=== PATIENT | male | born 1975 | race African-American/Black ===

== ENCOUNTER 2016-05-30 15:55 | Emergency (ER) | payer OTHER ==
[~2016-05-30] VITALS: Ht 180.3 cm; Wt 102.1 kg
[2016-05-30] MEDS ORDERED: MUPIROCIN 2 % TOPICAL CREAM 15GM TUBE. TP STA (16:11)
[2016-05-30] MEDS ORDERED: MORPHINE SULFATE 10 MG/ML VIAL. IM ONE (16:15)
[2016-05-30] MEDS ORDERED: OXYC-323 PO (16:42)
[2016-05-30] MEDS ORDERED: BACI3.5O8 TOP (16:42)
[2016-05-30] MEDS ORDERED: DIPHTH,PERTUSS(ACELL),TET TOX 0.5 ML DISP.SYRIN. VAX IM ONE (16:45)
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
[2016-05-30 17:15] VITALS: BP 170/82
[2016-05-30] MEDS ORDERED: OXYCODONE/APAP 7.5/325 TABLET. PO ONE (17:15)
== END 2016-05-30 17:30 | disposition home or self-care (01) ==
LOC: ER 15:55
DX: T23.201A Burn of second degree of right hand, unspecified site, initial encounter (principal); T22.112A Burn of first degree of left forearm, initial encounter; T22.111A Burn of first degree of right forearm, initial encounter; T31.0 Burns involving less than 10% of body surface; F17.210 Nicotine dependence, cigarettes, uncomplicated; X08.8XXA Exposure to other specified smoke, fire and flames, initial encounter; Y93.89 Activity, other specified; Y92.89 Other specified places as the place of occurrence of the external cause; Y99.8 Other external cause status
CPT/HCPCS: 16020; 90471; 90715; 96372; 99284; J2270

== ENCOUNTER 2020-04-08 09:03 | Inpatient (IN) | payer OTHER ==
[~2020-04-08] VITALS: Ht 180.3 cm; Wt 108.8 kg
[~2020-04-08 09:03] MED LIST: BACI3.5O8 TOP; OXYC1TAB15 PO
[2020-04-08 09:25] VITALS: BP 149/96
[2020-04-08 11:00] VITALS: BP 173/92
--- NOTE | 2020-04-08 11:01 | CONS ---
DATE OF CONSULTATION: PULMONARY CONSULTATION ATTENDING PHYSICIAN: Joselyn Trinidad MD. REASON FOR CONSULTATION: Dyspnea. HISTORY OF PRESENT ILLNESS: The patient is a 45-year-old who has no significant tobacco history. He presented to [facility] with complaint of orthopnea and paroxysmal nocturnal dyspnea for the last month and half. The patient denies any cough, fever or chills. Denies any chest pains. He does have occasional lower extremity edema. He said he has no known COVID exposures. At [facility], he had a CTA chest done, which was reviewed by me and it shows evidence of congestive heart failure. There is no evidence of pulmonary embolism. There were faint bilateral interstitial infiltrates and basal pleural effusions. He has been transferred to our facility for further care. There was some mildly enlarged subcarinal lymph node. PAST MEDICAL HISTORY: No significant tobacco history. No known cardiac dysfunction. PAST SURGICAL HISTORY: No recent surgery. ALLERGIES: None reported. MEDICATIONS: Reviewed as listed in the [facility]. He did receive Lasix at [facility]. REVIEW OF SYSTEMS: Twelve-point system obtained. Pertinent positives discussed in my history of present illness, otherwise noncontributory. All systems that were negative were reviewed as well. FAMILY HISTORY: Noncontributory to lungs. SOCIAL HISTORY: Nonsmoker. PHYSICAL EXAMINATION: VITAL SIGNS: Reviewed. He is afebrile, his pulse ox is 96% on room air. NECK: Supple. Visual exam done due to COVID suspicion. No skin rash. He is obese. LABORATORY DATA: From [facility] showed a white cell count 9.6, hemoglobin 13.6 and platelets are 234. BUN is 13, creatinine of 1.1. ProBNP is 4248. IMPRESSION: 1. Dyspnea with orthopnea and paroxysmal nocturnal dyspnea for the last 2 months. The findings are highly suggestive of congestive heart failure. 2. Abnormal CT chest with bilateral interstitial faint infiltrate and small pleural effusion. No evidence of pulmonary embolism. Findings highly suggestive of congestive heart failure. 3. No significant tobacco history. 4. Low clinical suspicion for COVID-19. RECOMMENDATIONS: 1. The patient is currently on room air. We would recommend diuresis and monitoring of renal function. 2. Rule out COVID. Clinical suspicion is low. 3. Need an echocardiogram to rule out systolic or diastolic dysfunction. 4. Needs a Cardiology consult and recommendation. 5. Discussed with RN and Dr. Trinidad. 6. The patient may benefit from sleep study as an outpatient. JACE DE JESUS MD DR: GENEVIEVE/karri JOB#: [id number] / [id number]
[2020-04-08] MEDS ORDERED: cloNIDine HCL 0.1 MG TABLET PO PRN (11:30)
[2020-04-08] MEDS ORDERED: diphenhydrAMINE 50 MG/ML VIAL IVP PRN (11:30)
[2020-04-08] MEDS ORDERED: chlordiazePOXIDE HCL 25 MG CAPSULE PO PRN ×2 (11:30)
[2020-04-08] MEDS ORDERED: HALOPERIDOL LACTATE 5 MG/ML VIAL. IVP PRN (11:30)
[2020-04-08] MEDS: MULTIVITAMIN with MINERAL TABLET. PO SCH (12:08)
[2020-04-08] MEDS: FOLIC ACID 1 MG TABLET. PO SCH (12:08)
[2020-04-08] MEDS: THIAMINE 100 MG TABLET. PO SCH (12:08)
--- NOTE | 2020-04-08 12:40 | HP ---
ADMIT DATE: 04/08/2020 HISTORY OF PRESENT ILLNESS: The patient is a 45-year-old male patient who presented to the Emergency Room of [facility] with a complaint of shortness of breath that has been going on for almost 2 months. He also stated that he has orthopnea and paroxysmal nocturnal dyspnea. His shortness of breath is worse on exertion and on climbing the hill. He said when he goes down to the mailbox he has no problem, but when he comes back he is very short of breath; however, he denied any chest pain, denied any cough, phlegm or hemoptysis. 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 He follows with Dr. Dickey and he was told that he has hypertension, but has never taken any medication for that. PAST MEDICAL HISTORY: Significant for hypertension diagnosed by primary care physician, but he is not taking any medication for that. Other than that his past medical history is really unremarkable. PAST SURGICAL HISTORY: Significant for appendectomy. ALLERGIES: He has no known drug allergies. MEDICATIONS: He takes ibuprofen or Aleve occasionally as needed for aches and pains. FAMILY HISTORY: His father is alive at the age of 72 and has osteoarthritis, but otherwise he is fairly healthy. His mother 20 years ago because of lung cancer, although she has not been a smoker. He has other 5 siblings, all of them are healthy. SOCIAL HISTORY: He is , has 3 children. He does not smoke, but drinks about two, 30, packs of alcohol a week and does not use any drugs or smoke marijuana. 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 REVIEW OF SYSTEMS: The patient denied any blurring of vision, cataract, glaucoma or macular degeneration. Denied any earache, tinnitus or sensorineural deafness. Denied any nosebleeds, stuffy nose or postnasal drip. Denied any sore throat, sore tongue, toothache, hoarseness of voice or difficulty swallowing. Denied any nausea, vomiting, diarrhea or constipation. Denied any hematemesis, melena or hematochezia. Denied any dysuria, frequency or hematuria. Denied any chest pain. Did complain of shortness of breath, worse on exertion, orthopnea, paroxysmal nocturnal dyspnea. Denied any cough, phlegm or hemoptysis. PHYSICAL EXAMINATION: GENERAL: On arrival to the Emergency Room, the patient was slightly tachypneic, but there was no pallor, jaundice, cyanosis or thyromegaly. No jugular venous distention. No lower limb edema. VITAL SIGNS: His heart rate was 122, blood pressure was 147/107, temperature was 98.2, respiratory rate 20 and oxygen saturation was 99% on room air. HEAD, EYES, EARS, NOSE AND THROAT: Showed normocephalic, atraumatic. NECK: Supple. HEART: Normal first and second heart sounds. No gallop or murmur. CHEST: Shows central trachea, equal bilateral chest expansion, air entry, vesicular breath sounds with bilateral basal crepitation posteriorly on both sides. I could not appreciate any rhonchi. ABDOMEN: Distended, soft, nontender. NEUROLOGIC: He was grossly intact. LABORATORY AND DIAGNOSTIC DATA: His lab work on arrival to the Emergency Room showed a white cell count 9600, hemoglobin 13.6, hematocrit 41, MCV 93 and platelet count 234,000 with normal manual differential. His chemistry showed a serum sodium 130, potassium 4.4, chloride 95, bicarbonate 24, anion gap of 11, BUN 13, creatinine 1.1, estimated GFR was 72 mL per minute, his glucose was 107, calcium was 8.7, magnesium was 1.8. Total bilirubin, AST, ALT, alkaline phosphatase were normal. CK was 59. His beta natriuretic peptide was 4248. Total protein was 6.2, albumin was 3.4, serum lipase was 75. First set of cardiac enzymes showed troponin to be 0.018. His prothrombin time was 11, INR 1.1, aPTT was 26 and D-dimer was 1.26. He has had a chest x-ray, which showed cardiomegaly and bilateral airspace disease, suggesting interstitial edema, atypical infection cannot be excluded. Given his shortness of breath and elevated D-dimer, he underwent CT angio of the chest, which showed the patient's heart size is moderately enlarged, no pericardial effusion, scattered coronary calcification. There are mildly enlarged right paratracheal and subcarinal and right hilar lymph nodes measuring 10-12 mm. There are no central lobar or segmental pulmonary emboli. The subsegmental branches are not well evaluated based on technique. Central airways are patent. Mild diffuse bronchial wall thickening. There are prominent interstitial markings bilaterally with patchy ground glass opacities throughout both lungs, small bilateral pleural effusion, no pneumothorax. Limited images of the upper abdomen showed small amount of ascites anterior to the liver. No acute bony abnormality. ASSESSMENT AND PLAN: The patient was basically diagnosed with new onset congestive heart failure, was transferred to [facility] to consult the management professional. 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 He apparently has responded well to Lasix. I will start him on Lovenox for DVT prophylaxis. I will start him also on alcohol withdrawal protocol and he was seen in consultation by the educational resource coordinator and we have consulted also the management professional for evaluation and treatment. GWENDOLYN DAVENPORT MD DR: ZULEMA/karri JOB#: [id number] / [id number]
[2020-04-08] MEDS ORDERED: ENOXAPARIN 40 MG/0.4 ML SYRINGE. SQ SCH (13:00)
[2020-04-08 15:00] VITALS: BP 185/103
[2020-04-08] MEDS: ACETAMINOPHEN 325 MG TABLET. PO PRN (15:05)
[2020-04-08 17:39] VITALS: BP 128/78
[2020-04-08 19:15] VITALS: BP 150/96
[2020-04-08 23:34] VITALS: BP 146/86
[2020-04-09 03:20] VITALS: BP 169/89
[2020-04-09 07:00] VITALS: BP 160/98
[2020-04-09] MEDS: FOLIC ACID 1 MG TABLET. PO SCH (09:18)
[2020-04-09] MEDS: THIAMINE 100 MG TABLET. PO SCH (09:18)
[2020-04-09] MEDS: MULTIVITAMIN with MINERAL TABLET. PO SCH (09:19)
[2020-04-09 09:25] LABS: ALBUMIN 3.6 g/dL (3.4-5.0); ALBUMIN/GLOBULIN RATIO 1.2 (1.0-1.7); CALCIUM 8.7 mg/dL (8.5-10.1); GFR 97.8; POTASSIUM 3.9 mmol/L (3.5-5.1); TOTAL PROTEIN 6.6 g/dL (6.4-8.2)
--- NOTE | 2020-04-09 10:13 | PN ---
DATE: 04/09/2020 SUBJECTIVE: The patient is resting, slightly propped up in bed, in no apparent respiratory distress. He denied any chest pain, continued to have shortness of breath and episodes of orthopnea. He did also have episodes of restlessness and anxiety last night for which he received some Ativan. PHYSICAL EXAMINATION: GENERAL: On examining him this morning, he looked well and was clearly in no apparent respiratory distress. No pallor, jaundice, cyanosis, or thyromegaly. No jugular venous distension. No lower limb edema. VITAL SIGNS: His heart rate was 118, blood pressure was 160/98, temperature 97.5, respiratory rate 20, and oxygen saturation was 94%. HEAD, EYES, EARS, NOSE AND THROAT: Showed normocephalic, atraumatic. NECK: Supple. HEART: Showed normal first and second heart sounds. No gallop, rub or murmur. CHEST: Clear to auscultation. No crepitation or rhonchi. ABDOMEN: Distended, soft, nontender. NEUROLOGIC: He was grossly intact. ASSESSMENT: This is a 45-year-old male patient who presented with progressive shortness of breath that has worsened over the last 2 months associated orthopnea, paroxysmal nocturnal dyspnea. Denied any chest pain. He has had a chest x-ray, which showed that he has cardiomegaly and CT scan ruled out pulmonary emboli. The patient apparently responded well to the IV Lasix. PLAN: We will continue with IV Lovenox. I started him on alcohol withdrawal protocol. Await evaluation by the client experience administrator, he is PUI; however, his COVID test by PCR is still pending at the time of this dictation. GWENDOLYN DAVENPORT MD DR: ZULEMA/karri JOB#: [id number] / [id number]
--- NOTE | 2020-04-09 10:19 | PDOC ---
PULMONARY PROGRESS NOTES DATE: 04/09/20 TIME: 10:18 Subjective feels better , no soa Vitals Vital Signs Date Time Temp Pulse Resp B/P (MAP) Pulse Ox O2 Delivery O2 Flow Rate FiO2 04/09/20 07:00 97.5 118 20 160/98 (118) 94 Room Air 97.5 04/09/20 03:20 2.0 General: Alert, No acute distress Lungs: Clear Cardiovascular: S1 Abdomen: Soft, Other (obese) Extremities: Other (trace edema) Skin: Warm Labs Laboratory Tests Test 04/08/20 11:43 04/09/20 08:22 Prothrombin Time 14.0 SEC (11.7-14.0) Prothromb Time International Ratio 1.1 (0.8-1.1) Magnesium Level 1.9 mg/dL (1.8-2.4) Troponin I Quantitative < 0.017 ng/mL (0.000-0.055) Thyroid Stimulating Hormone (TSH) 4.656 uIU/mL (0.358-3.74) Sodium Level 134 mmol/L (136-145) Potassium Level 3.9 mmol/L (3.5-5.1) Chloride Level 97 mmol/L (98-107) Carbon Dioxide Level 26 mmol/L (21-32) Anion Gap 11 (6-14) Blood Urea Nitrogen 10 mg/dL (8-26) Creatinine 1.0 mg/dL (0.7-1.3) Estimated GFR (Cockcroft-Gault) 97.8 BUN/Creatinine Ratio 10 (6-20) Glucose Level 104 mg/dL (70-99) Calcium Level 8.7 mg/dL (8.5-10.1) Total Bilirubin 1.0 mg/dL (0.2-1.0) Aspartate Amino Transf (AST/SGOT) 25 U/L (15-37) Alanine Aminotransferase (ALT/SGPT) 39 U/L (16-63) Alkaline Phosphatase 62 U/L (46-116) Total Protein 6.6 g/dL (6.4-8.2) Albumin 3.6 g/dL (3.4-5.0) Albumin/Globulin Ratio 1.2 (1.0-1.7) Laboratory Tests Test 04/08/20 11:43 04/09/20 08:22 Prothrombin Time 14.0 SEC (11.7-14.0) Prothromb Time International Ratio 1.1 (0.8-1.1) Magnesium Level 1.9 mg/dL (1.8-2.4) Troponin I Quantitative < 0.017 ng/mL (0.000-0.055) Thyroid Stimulating Hormone (TSH) 4.656 uIU/mL (0.358-3.74) Sodium Level 134 mmol/L (136-145) Potassium Level 3.9 mmol/L (3.5-5.1) Chloride Level 97 mmol/L (98-107) Carbon Dioxide Level 26 mmol/L (21-32) Anion Gap 11 (6-14) Blood Urea Nitrogen 10 mg/dL (8-26) Creatinine 1.0 mg/dL (0.7-1.3) Estimated GFR (Cockcroft-Gault) 97.8 BUN/Creatinine Ratio 10 (6-20) Glucose Level 104 mg/dL (70-99) Calcium Level 8.7 mg/dL (8.5-10.1) Total Bilirubin 1.0 mg/dL (0.2-1.0) Aspartate Amino Transf (AST/SGOT) 25 U/L (15-37) Alanine Aminotransferase (ALT/SGPT) 39 U/L (16-63) Alkaline Phosphatase 62 U/L (46-116) Total Protein 6.6 g/dL (6.4-8.2) Albumin 3.6 g/dL (3.4-5.0) Albumin/Globulin Ratio 1.2 (1.0-1.7) Medications Active Scripts Medications Dose Route/Sig Max Daily Dose Days Date Category Impression . 1. Dyspnea with orthopnea and paroxysmal nocturnal dyspnea for the last 2 months. The findings are highly suggestive of congestive heart failure. 2. Abnormal CT chest with bilateral interstitial faint infiltrate and small pleural effusion. No evidence of pulmonary embolism. Findings highly suggestive of congestive heart failure. 3. No significant tobacco history. 4. Low clinical suspicion for COVID-19. Plan . 1. The patient is currently on room air. We would recommend prn diuresis and monitoring of renal function. 2. Rule out COVID. Clinical suspicion is low. 3. Need an echocardiogram to rule out systolic or diastolic dysfunction. 4. Needs a Cardiology consult and recommendation. 5. Discussed with RN and Dr. Trinidad. 6. The patient may benefit from sleep study as an outpatient. JACE DE JESUS MD Apr 09, 2020 10:19
[2020-04-09 10:42] VITALS: BP 158/94
[2020-04-09] MEDS: ALBUTEROL SULFATE 8GM INHALER. INH SCH ×3 (12:00→20:00)
--- NOTE | 2020-04-09 13:11 | PDOC2 ---
CONSULT Date of Consult Date of Consult DATE: 04/09/20 TIME: 13:06 Reason for Consult Reason for Consult: Congestive heart failure Referring Physician Referring Physician: Dr. Trinidad Identification/Chief Complaint Chief Complaint Shortness of breath Source Source: Chart review, Patient History of Present Illness Reason for Visit: 45-year-old male without any previous cardiac history initially presented to [facility] ED with progressive shortness of breath going on for approximately 2 months. He also complained of orthopnea and PND but denied any chest pain, palpitations or syncope. He was diagnosed with congestive heart failure and transferred to [facility] for further management. He is also currently being tested for Covid. Patient has a history of chronic alcohol abuse but denied any illicit drug use. Past Medical History Cardiovascular: HTN Past Surgical History Past Surgical History: Appendectomy Family History Family History Lung cancer and hypertension Social History Social History Patient drinks about 60 beers a week and denied any smoking or drug abuse. Current Medications Current Medications Current Medications Folic Acid (Folic Acid) 1 mg DAILY PO Last administered on 04/09/20at 09:18; Start 04/08/20 at 12:00 Thiamine Mononitrate (Vitamin B-1) 100 mg DAILY PO Last administered on 04/09/20at 09:18; Start 04/08/20 at 12:00 Multivitamins (Thera M Plus) 1 tab DAILY PO Last administered on 04/09/20at 09:19; Start 04/08/20 at 12:00 Chlordiazepoxide (Librium) 50 mg PRN Q1HR PRN PO For CIWA 8-14; Start 04/08/20 at 11:30 Chlordiazepoxide (Librium) 100 mg PRN Q1HR PRN PO For CIWA 15 or greater; Start 04/08/20 at 11:30 Lorazepam (Ativan) 4 mg PRN Q1HR PRN PO For CIWA 8-14; Start 04/08/20 at 11:30 Lorazepam (Ativan Inj) 2 mg PRN Q1HR PRN IV For CIWA 8-14 Last administered on 04/09/20at 00:45; Start 04/08/20 at 11:30 Lorazepam (Ativan Inj) 4 mg PRN Q1HR PRN IV For CIWA 15 or greater; Start 04/08/20 at 11:30 Haloperidol Lactate (Haldol Inj) 5 mg PRN Q4HRS PRN IVP Hallucinatns,Confusn,Delirium; Start 04/08/20 at 11:30 Diphenhydramine HCl (Benadryl) 25 mg PRN Q15MIN PRN IVP EPS symptoms 2'Haldol admin Last administered on 04/08/20at 23:31; Start 04/08/20 at 11:30 Clonidine HCl (Catapres) 0.1 mg PRN Q1HR PRN PO SBP > 180 or DBP > 100, MRX3 Last administered on 04/08/20at 16:07; Start 04/08/20 at 11:30 Lorazepam (Ativan Inj) 2 mg PRN Q15MIN PRN IV SEE COMMENTS; Start 04/08/20 at 11:30; Status UNV Enoxaparin Sodium (Lovenox 40mg Syringe) 40 mg Q24H SQ ; Start 04/09/20 at 16:00 Enoxaparin Sodium (Lovenox 40mg Syringe) 40 mg Q24H SQ ; Start 04/08/20 at 13:00; Status UNV Acetaminophen (Tylenol) 650 mg PRN Q4HRS PRN PO MILD PAIN / TEMP > 100.3'F Last administered on 04/08/20at 15:05; Start 04/08/20 at 15:00 Albuterol Sulfate (Ventolin Hfa) 1 puff RTQID INH ; Start 04/09/20 at 12:00 Active Scripts Active Allergies Allergies: Coded Allergies: No Known Drug Allergies (Unverified , 05/30/16) ROS PSYCHOLOGICAL ROS: No: Hallucinations Eyes: No Loss of vision HEENT: No: Epistaxis Respiratory: YES: Orthopnea, Shortness of breath; No: Hemoptysis Cardiovascular: No Palpitations Gastrointestinal: No Vomiting, No Diarrhea Genitourinary: No Hematuria Neurological: No Seizures Skin: No Rash Physical Exam General: Alert, Oriented X3 HEENT: Atraumatic Lungs: Other (Scattered crepitations bilaterally) Heart: No murmurs, Other (Tachycardic) Extremities: No edema Neuro: Normal speech Psych/Mental Status: Mood NL Vitals VITALS Vital Signs Date Time Temp Pulse Resp B/P (MAP) Pulse Ox O2 Delivery O2 Flow Rate FiO2 04/09/20 10:42 98.1 119 20 158/94 (115) 95 Room Air 98.1 04/09/20 03:20 2.0 Labs Labs Laboratory Tests Test 04/08/20 11:43 04/09/20 08:22 Prothrombin Time 14.0 SEC (11.7-14.0) Prothromb Time International Ratio 1.1 (0.8-1.1) Magnesium Level 1.9 mg/dL (1.8-2.4) Troponin I Quantitative < 0.017 ng/mL (0.000-0.055) Thyroid Stimulating Hormone (TSH) 4.656 uIU/mL (0.358-3.74) Sodium Level 134 mmol/L (136-145) Potassium Level 3.9 mmol/L (3.5-5.1) Chloride Level 97 mmol/L (98-107) Carbon Dioxide Level 26 mmol/L (21-32) Anion Gap 11 (6-14) Blood Urea Nitrogen 10 mg/dL (8-26) Creatinine 1.0 mg/dL (0.7-1.3) Estimated GFR (Cockcroft-Gault) 97.8 BUN/Creatinine Ratio 10 (6-20) Glucose Level 104 mg/dL (70-99) Calcium Level 8.7 mg/dL (8.5-10.1) Total Bilirubin 1.0 mg/dL (0.2-1.0) Aspartate Amino Transf (AST/SGOT) 25 U/L (15-37) Alanine Aminotransferase (ALT/SGPT) 39 U/L (16-63) Alkaline Phosphatase 62 U/L (46-116) Total Protein 6.6 g/dL (6.4-8.2) Albumin 3.6 g/dL (3.4-5.0) Albumin/Globulin Ratio 1.2 (1.0-1.7) Laboratory Tests Test 04/09/20 08:22 Sodium Level 134 mmol/L (136-145) Potassium Level 3.9 mmol/L (3.5-5.1) Chloride Level 97 mmol/L (98-107) Carbon Dioxide Level 26 mmol/L (21-32) Anion Gap 11 (6-14) Blood Urea Nitrogen 10 mg/dL (8-26) Creatinine 1.0 mg/dL (0.7-1.3) Estimated GFR (Cockcroft-Gault) 97.8 BUN/Creatinine Ratio 10 (6-20) Glucose Level 104 mg/dL (70-99) Calcium Level 8.7 mg/dL (8.5-10.1) Total Bilirubin 1.0 mg/dL (0.2-1.0) Aspartate Amino Transf (AST/SGOT) 25 U/L (15-37) Alanine Aminotransferase (ALT/SGPT) 39 U/L (16-63) Alkaline Phosphatase 62 U/L (46-116) Total Protein 6.6 g/dL (6.4-8.2) Albumin 3.6 g/dL (3.4-5.0) Albumin/Globulin Ratio 1.2 (1.0-1.7) Assessment/Plan Assessment/Plan 1. Congestive heart failure, most of the acute on chronic diastolic. Symptoms improved after he received Lasix. He seems to be much better compensated clinically today. We will give another dose of IV Lasix today and start p.o. tomorrow. He is currently being tested for Covid. Check 2D echocardiogram if Covid negative. Consider outpatient ischemic evaluation. 2. Accelerated hypertension: Start metoprolol for better control. 3. Chronic alcohol use: Advised on abstinence. Monitor for withdrawal. Thank you for your consultation. JOSE ELIAS ESPINOZA MD Apr 09, 2020 13:11
[2020-04-09] MEDS ORDERED: FUROSEMIDE 40 MG/4 ML VIAL. IVP ONE (13:15)
[2020-04-09 14:57] VITALS: BP 153/89
[2020-04-09] MEDS: ENOXAPARIN 40 MG/0.4 ML SYRINGE. SQ SCH (18:27)
[2020-04-09 19:53] VITALS: BP 173/93
[2020-04-09 22:42] VITALS: BP 182/94
[2020-04-10] MEDS: ACETAMINOPHEN 325 MG TABLET. PO PRN (01:17)
[2020-04-10 02:58] VITALS: BP 169/90
[2020-04-10 07:00] VITALS: BP 148/95
[2020-04-10] MEDS: ALBUTEROL SULFATE 8GM INHALER. INH SCH ×4 (08:00→20:00)
[2020-04-10] MEDS: METOPROLOL TART IMMED RELEASE 25 MG TABLET. PO SCH ×2 (09:02→20:27)
[2020-04-10] MEDS: THIAMINE 100 MG TABLET. PO SCH (09:02)
[2020-04-10] MEDS: FOLIC ACID 1 MG TABLET. PO SCH (09:02)
[2020-04-10] MEDS: MULTIVITAMIN with MINERAL TABLET. PO SCH (09:02)
--- NOTE | 2020-04-10 10:41 | PDOC ---
PULMONARY PROGRESS NOTES DATE: 04/10/20 TIME: 10:40 Subjective feels better , no soa Vitals Vital Signs Date Time Temp Pulse Resp B/P (MAP) Pulse Ox O2 Delivery O2 Flow Rate FiO2 04/10/20 09:02 114 148/95 04/10/20 08:00 Room Air 04/10/20 07:00 97.6 19 98 97.6 04/09/20 08:00 2.0 General: Alert, No acute distress Lungs: Clear Cardiovascular: S1 Abdomen: Soft, Other (obese) Extremities: Other (trace edema) Skin: Warm Labs Laboratory Tests Test 04/08/20 11:43 04/09/20 08:22 Prothrombin Time 14.0 SEC (11.7-14.0) Prothromb Time International Ratio 1.1 (0.8-1.1) Magnesium Level 1.9 mg/dL (1.8-2.4) Troponin I Quantitative < 0.017 ng/mL (0.000-0.055) Thyroid Stimulating Hormone (TSH) 4.656 uIU/mL (0.358-3.74) Sodium Level 134 mmol/L (136-145) Potassium Level 3.9 mmol/L (3.5-5.1) Chloride Level 97 mmol/L (98-107) Carbon Dioxide Level 26 mmol/L (21-32) Anion Gap 11 (6-14) Blood Urea Nitrogen 10 mg/dL (8-26) Creatinine 1.0 mg/dL (0.7-1.3) Estimated GFR (Cockcroft-Gault) 97.8 BUN/Creatinine Ratio 10 (6-20) Glucose Level 104 mg/dL (70-99) Calcium Level 8.7 mg/dL (8.5-10.1) Total Bilirubin 1.0 mg/dL (0.2-1.0) Aspartate Amino Transf (AST/SGOT) 25 U/L (15-37) Alanine Aminotransferase (ALT/SGPT) 39 U/L (16-63) Alkaline Phosphatase 62 U/L (46-116) Total Protein 6.6 g/dL (6.4-8.2) Albumin 3.6 g/dL (3.4-5.0) Albumin/Globulin Ratio 1.2 (1.0-1.7) Medications Active Scripts Medications Dose Route/Sig Max Daily Dose Days Date Category Impression . 1. Dyspnea with orthopnea and paroxysmal nocturnal dyspnea for the last 2 months. The findings are highly suggestive of congestive heart failure. 2. Abnormal CT chest with bilateral interstitial faint infiltrate and small pleural effusion. No evidence of pulmonary embolism. Findings highly suggestive of congestive heart failure. 3. No significant tobacco history. 4. Low clinical suspicion for COVID-19. Plan . 1. The patient is currently on room air. We would recommend prn diuresis and monitoring of renal function. 2. COVID.NEG 3. Need an echocardiogram to rule out systolic or diastolic dysfunction. 4. Cardiology consult and recommendation. 5. Discussed with RN 6. The patient may benefit from sleep study as an outpatient. [place] PULMONARY BOSS FOR IN JACE DE JESUS MD Apr 10, 2020 10:41
[2020-04-10 11:00] VITALS: BP 131/91
--- NOTE | 2020-04-10 11:23 | PDOC ---
WENDIE REZA APRN 04/10/20 1123: CARDIO Progress Notes Date and Time Date of Service 04/10/20 Time of Evaluation 1030 Subjective Subjective: No Chest Pain, No Palpitations, No Dizziness, Other (c/o dyspnea following echo this am) Vitals Vitals Vital Signs Date Time Temp Pulse Resp B/P (MAP) Pulse Ox O2 Delivery O2 Flow Rate FiO2 04/10/20 09:02 114 148/95 04/10/20 08:00 Room Air 04/10/20 07:00 97.6 19 98 97.6 04/09/20 08:00 2.0 Weight Weight [ ] Input and Output Intake and Output Intake and Output 04/10/20 06:59 Intake Total 1940 ml Output Total 900 ml Balance 1040 ml Intake Oral 1940 ml Output Urine Total 900 ml # Voids 2 Physical Exam HEENT: Neck Supple W Full Motion Chest: Symmetric LUNGS: Clear to Auscultation Heart: RRR Abdomen: Soft N/T Extremities: Other (trace bilateral LE edema ) Neurology: alert, oriented, follow commands Assessment Assessment 1. Acute on chronic systolic CHF; improved with IV Lasix. COVID negatvie. 2. Cardiomyopathy; Echo shows LVEF 20% 3. Accelerated hypertension; remains elevated. Metoprolol added 4. Chronic alcohol use: Reinforced abstinence. Recommendations ASA Lipids Convert metoprolol to long-acting given CMP Add lisinopril Will given additional dose of IV Lasix this morning Discussed need for further ischemic evaluation given new finding of CMP. Patient agreeable, but apprehensive. R/b/a discussed thoroughly with both and . They would like to discussed further to make decision. Justicifation of Admission Dx: Justifications for Admission: Justification of Admission Dx: Yes Comments: acute on chronic systolic CHF Cardiomyopathy JOSE ELIAS ESPINOZA MD 04/10/20 1627: CARDIO Progress Notes Assessment Assessment Patient seen and examined. Agree with PROPERTY MANAGEMENT SUPERVISOR's assessment and plan. Acute on chronic systolic heart failure better compensated. 2D echo showed LVEF 20%. This could be secondary to his heavy alcohol use but ischemic etiology needs to be ruled out. Plan for cardiac catheterization and possible angioplasty. Risks and benefits were explained. Agree with starting beta blockers for better blood pressure control. We will consider changing lisinopril to Entresto as an outpatient. Start spironolactone to optimize therapy. WENDIE REZA APRN Apr 10, 2020 11:23 JOSE ELIAS ESPINOZA MD Apr 10, 2020 16:27
--- NOTE | 2020-04-10 11:24 | PN ---
DATE: 04/10/2020 SUBJECTIVE: The patient is sitting on the edge of the bed comfortably, in no apparent distress. He stated that he has not slept all night last night. Denied any chest pain, shortness of breath, orthopnea or paroxysmal nocturnal dyspnea. His coronavirus PCR was not detectable. He continued to have tachycardia and hypertension, likely due to alcohol withdrawal. PHYSICAL EXAMINATION: GENERAL: When I examined him, he looked well and was clearly in no apparent respiratory distress. No pallor, jaundice, cyanosis or thyromegaly. No jugular venous distention or limb edema. VITAL SIGNS: His heart rate was 109, blood pressure was 169/90, temperature was 97.2, respiratory rate was 20 and oxygen saturation was 100% on room air. HEAD, EYES, EARS, NOSE, THROAT: Showed normocephalic, atraumatic. NECK: Supple. HEART: Normal first and second heart sounds. No gallop or murmur. CHEST: Clear to auscultation. No crepitation or rhonchi. ABDOMEN: Distended, soft, nontender. NEUROLOGIC: He was awake, alert, responding appropriately. All cranial nerves are intact. He moves extremities without difficulty, ambulates without assistance or assistive devices. His intake and output are incompletely recorded. ASSESSMENT: Progressive shortness of breath with orthopnea, paroxysmal nocturnal dyspnea, likely due to acute diastolic congestive heart failure. Chest x-ray showed cardiomegaly. CT scan showed no evidence of pulmonary emboli. The patient did respond very well to IV Lasix. PLAN: My plan is to obviously continue with Lasix. I did start him on metoprolol 25 mg twice a day. Continue with IV Lovenox. He was seen by the rn discharge and the plan for him is to have an echocardiogram to evaluate left ventricular systolic function as he is COVID-19 negative. GWENDOLYN DAVENPORT MD DR: ZULEMA/karri JOB#: [id number] / [id number]
[2020-04-10] MEDS ORDERED: FUROSEMIDE 40 MG/4 ML VIAL. IVP ONE (11:30)
[2020-04-10] MEDS ORDERED: POTASSIUM CHLORIDE 20 MEQ TABLET.ER. PO ONE (11:30)
[2020-04-10 13:38] LABS: CHOLESTEROL/HDL RATIO 4.5
[2020-04-10 15:00] VITALS: BP 138/88
--- NOTE | 2020-04-10 15:16 | CARD ---
MR#: [id number] Date of Study: 04/10/2020 Ordering Physician: JOSE ELIAS ESPINOZA, Referring Physician: JOSE ELIAS ESPINOZA Tech: Kadi Abad [facility] APPROVED REPORT EXAM: Two-dimensional and M-mode echocardiogram with Doppler and color Doppler. Other Information Quality : GoodHR: 113bpm Rhythm : NSR INDICATION Congestive Heart Failure 2D DIMENSIONS RVDd6.2 (2.9-3.5cm)Left Atrium(2D)5.6 (1.6-4.0cm) IVSd1.0 (0.7-1.1cm)Aortic Root(2D)3.3 (2.0-3.7cm) LVDd7.2 (3.9-5.9cm)LVOT Diameter2.3 (1.8-2.4cm) PWd1.0 (0.7-1.1cm)LVDs5.8 (2.5-4.0cm) FS (%) 19.7 %SV108.0 ml LVEF(%)39.3 (>50%) Aortic Valve AoV Peak Esvin.82.8cm/sAoV VTI9.9cm AO Peak GR.2.7mmHgLVOT Peak Esvin.54.5cm/s AO Mean GR.2mmHgAVA (VMAX)2.64cm2 Mitral Valve MV E Evnmxsvh366.5cm/sMV DECEL GFOL55sb MV A Dbpbenft10.9cm/sE/A Ratio1.5 Tricuspid Valve TR P. Gniasana093jn/sTR Peak Gr.35mmHg LEFT VENTRICLE The Left Ventricle is moderately dilated. There is normal left ventricular wall thickness. The left v entricular systolic function is severely impaired. The ejection fraction is 20%. Severe global hypok inesis. Transmitral Doppler flow pattern is Grade II-pseudonormal filling dynamics. RIGHT VENTRICLE The right ventricle appears dilated. There is normal right ventricular wall thickness. Systolic funct ion is mildly to moderately reduced. ATRIA The left atrium is moderately dilated. The right atrium is moderatelyl dilated. The interatrial septu m is intact with no evidence for an atrial septal defect or patent foramen ovale as noted on 2-D or D oppler imaging. AORTIC VALVE The aortic valve is normal in structure and function. Doppler and Color Flow revealed no significant aortic regurgitation. There is no significant aortic valvular stenosis. MITRAL VALVE The mitral valve is normal in structure and function. There is no evidence of mitral valve prolapse. There is no mitral valve stenosis. Doppler and Color-flow revealed moderate mitral regurgitation. TRICUSPID VALVE The tricuspid valve is normal in structure and function. Doppler and Color Flow revealed mild to mode rate tricuspid regurgitation. Estimated PAP 50 mmHg. PULMONIC VALVE The pulmonary valve is normal in structure and function. Doppler and Color Flow revealed trace pulmon ic valvular regurgitation. GREAT VESSELS The aortic root is normal in size. The ascending aorta is normal in size. The pulmonary artery is nor mal. The IVC is dilated and collapses <50% with inspiration. PERICARDIAL EFFUSION There is no evidence of significant pericardial effusion. Critical Notification Critical Value: No <Conclusion> The left ventricular systolic function is severely impaired. The ejection fraction is 20%. Moderate mitral regurgitation. Mild to moderate tricuspid regurgitation. Estimated PAP 50 mmHg. There is no evidence of significant pericardial effusion. Signed by : Jose Elias Espinoza, Electronically Approved : 04/10/2020 15:16:14
[2020-04-10] MEDS: ENOXAPARIN 40 MG/0.4 ML SYRINGE. SQ SCH (16:00)
[2020-04-10 19:30] VITALS: BP 149/93
[2020-04-10 23:30] VITALS: BP 138/86
--- NOTE | 2020-04-11 00:32 | NUR ---
Patient insisting on keeping water at bedside. explained to patient that he can not have anything to eat or drink after midnight d/t procedure in the AM, and aspiration precautions. patient states "i better not choke on my own vomit, i will have a room full of doctors around me", patient then stated that he will not drink any of it but refuses to allow anyone to remove the water from bedside. Will continue to monitor.
[2020-04-11 03:30] VITALS: BP 133/98
[2020-04-11 07:00] VITALS: BP 137/94
--- NOTE | 2020-04-11 07:28 | PN ---
DATE: 04/11/2020 SUBJECTIVE: The patient is sitting at the edge of the bed comfortably in no apparent respiratory distress. Awake, alert. On questioning him, he denied any complaint, apart from being anxious and apprehensive about the procedure. He has had an echocardiogram done yesterday, which showed that he has severe left ventricular systolic dysfunction with an ejection fraction of only 20% with moderate mitral regurgitation, [id number] tricuspid regurgitation and an estimated pulmonary artery pressure of 50 mmHg. There is no evidence of significant pericardial effusion. Given this finding, apparently, a decision was made to proceed with cardiac catheterization to rule out ischemia as a cause of his cardiomyopathy, although alcoholic cardiomyopathy can be the cause. PHYSICAL EXAMINATION: GENERAL: When I examined him this morning, he looked well and was clearly in no apparent respiratory distress. No pallor, jaundice, cyanosis or thyromegaly. No jugular venous distention. No limb edema. VITAL SIGNS: His heart rate was 109, blood pressure was 133/98, temperature was 97.6, respiratory rate 20, and oxygen saturation was 98% on room air. HEAD, EYES, EARS, NOSE AND THROAT: Showed normocephalic, atraumatic. NECK: Supple. HEART: Normal first and second heart sounds. No gallop, rub or murmur. CHEST: Clear to auscultation. No crepitation or rhonchi. ABDOMEN: Soft, nontender. NEUROLOGIC: He was awake, alert, responding appropriately. All cranial nerves are intact. He moves extremities without difficulty. His intake was 1940, output was 900. LABORATORY DATA: His most recent lab work showed a serum sodium 134, potassium 3.9, chloride 97, bicarbonate 26, anion gap of 11, BUN 10, creatinine 1, estimated GFR was 97.8 mL per minute, his glucose 104, calcium was 8.7, magnesium was 1.9. Total bilirubin, AST, ALT, alkaline phosphatase were normal. Total protein was 6.6. albumin was 3.6. His serum triglycerides were 120, total cholesterol 140, LDL was 85, VLDL was 24, HDL was 31 and ratio of 4.5. TSH was 4.656. His prothrombin time and INR are normal. ASSESSMENT: 1. In summary, acute on chronic systolic congestive heart failure. 2. Cardiomyopathy, ischemic versus alcoholic. 3. Accelerated hypertension. 4. Chronic alcoholism. PLAN: Obviously to proceed with cardiac catheterization. Continue with aspirin, metoprolol as well as lisinopril and atorvastatin. Continue with alcohol withdrawal protocol. GWENDOLYN DAVENPORT MD DR: ZULEMA/karri JOB#: [id number] / [id number]
[2020-04-11] MEDS: ALBUTEROL SULFATE 8GM INHALER. INH SCH ×2 (08:00→12:00)
[2020-04-11] MEDS ORDERED: IODIXANOL 320 MG/ML 100 ML VIAL. ONE (08:00)
[2020-04-11] MEDS ORDERED: ASPIRIN ENTERIC COATED 81 MG TABLET.DR. PO SCH (08:00)
[2020-04-11] MEDS ORDERED: LIDOCAINE 1% Multi-Dose 20 ML VIAL. ONE (08:00)
[2020-04-11] MEDS ORDERED: fentaNYL PF VIAL 100 MCG/2 ML VIAL ONE (08:33)
[2020-04-11] MEDS ORDERED: HEPARIN for IV BOLUS 10,000 UNIT/10 ML VIAL. ONE (08:34)
[2020-04-11] MEDS ORDERED: NITROGLYCERIN 200 MCG/2 ML SYRINGE FOR CATH/VASC LAB. ONE (08:34)
[2020-04-11] MEDS ORDERED: VERAPAMIL 5 MG/2 ML VIAL. ONE (08:34)
[2020-04-11] MEDS ORDERED: MIDAZOLAM HCL/PF 2 MG/2 ML VIAL. ONE (08:34)
[2020-04-11] MEDS ORDERED: LISINOPRIL 10 MG TABLET PO SCH (09:00)
[2020-04-11] MEDS ORDERED: HEPARIN for IV BOLUS 10,000 UNIT/10 ML VIAL. IART ONE (09:00)
[2020-04-11] MEDS ORDERED: fentaNYL PF VIAL 100 MCG/2 ML VIAL IV ONE (09:00)
[2020-04-11] MEDS ORDERED: IODIXANOL 320 MG/ML 100 ML VIAL. IART ONE (09:00)
[2020-04-11] MEDS ORDERED: METOPROLOL SUCC 24HR ER 50 MG TAB.ER.24H. PO SCH (09:00)
[2020-04-11] MEDS ORDERED: VERAPAMIL 5 MG/2 ML VIAL. IART ONE (09:00)
[2020-04-11] MEDS ORDERED: MIDAZOLAM HCL/PF 2 MG/2 ML VIAL. IV ONE (09:00)
[2020-04-11] MEDS ORDERED: LIDOCAINE 1% Multi-Dose 20 ML VIAL. INJ ONE (09:00)
[2020-04-11] MEDS ORDERED: NITROGLYCERIN 200 MCG/2 ML SYRINGE FOR CATH/VASC LAB. IART ONE (09:00)
[2020-04-11 09:01] VITALS: BP 122/82
--- NOTE | 2020-04-11 09:11 | PDOC ---
MODERATE SEDATION ASSESSMENT RISKS/ALTERNATIVES Risks/Alternatives Risks and alternatives of this type of sedation and procedure discussed with: RISK/ALTERNATIVES: Patient H & P ON CHART H & P H & P on chart and reviewed for co-morbid conditions and appropriate labs. H&P ON CHART: Yes STATUS PREG STATUS ASSESSED: N/A MEDS/ALLERGIES REVIEWED Meds/Allergies Reviewed Medications and Allergies including time and route of recently administered narcotics and sedatives. MEDS/ALLERGIES REVIEWED: Yes ASA RATING ASA RATING: III AIRWAY ASSESSMENT Airway Assessment Airway patency, oral function limitations, presence of caps, crowns, dentures, partials, and ability to extend neck assessed. AIRWAY ASSESSMENT: Yes MALLAMPATI SCORE MALLAMPATI SCORE: II PRE-SEDATION ASSESSMENT PRE-SEDATION ASSESSMENT: Yes JOSE ELIAS ESPINOZA MD Apr 11, 2020 09:11
[2020-04-11] MEDS: MULTIVITAMIN with MINERAL TABLET. PO SCH (09:25)
[2020-04-11] MEDS: FOLIC ACID 1 MG TABLET. PO SCH (09:26)
[2020-04-11] MEDS: THIAMINE 100 MG TABLET. PO SCH (09:26)
[2020-04-11] MEDS ORDERED: POTASSIUM CHLORIDE 10 MEQ TABLET.ER. PO SCH (09:30)
[2020-04-11] MEDS ORDERED: FUROSEMIDE 40 MG TABLET. PO SCH (09:30)
[2020-04-11] MEDS ORDERED: SPIRONOLACTONE 25 MG TABLET PO SCH (09:30)
--- NOTE | 2020-04-11 09:35 | CARD ---
MR#: [id number] Date of Study: 04/11/2020 Ordering Physician: WENDIE REZA, Referring Physician: WENDIE REZA Tech: RT ROSA ELENA APPROVED REPORT Technologist: RT ROSA ELENA Nurse: Venus Lyons R.N. Procedure(s) performed: Left heart catheterization and selective coronary angiography via right trans radial approach MODERATE SEDATION TIME: 23 MINUTES FLUORO TIME: 1.8 MIN DOSE: 60.3 GYCM2 CONTRAST: 86CC VISI NYHA: CLASS 4 BLOOD LOSS: 5 ML INDICATION The indication(s) include : Acute on chronic systolic heart failure, cardiomyopathy with EF 20%. [facility] Clinical Frailty Scale CS Clinical Frailty Scale: Managing Well Heart Failure Heart Failure: Yes If Yes, Newly Diagnosed: Yes If Yes, HF Type: Systolic PROCEDURE NARRATIVE After explaining the risks, benefits and alternative options, informed consent was obtained from barbara ent. Patient was brought to the cardiac Clerk Of Scales and right wrist was prepped and draped in the usual fashion after confirming a positive modified Nabil's test. Arterial access was obtained in the righ t radial artery and a 6 Taiwanese sheath was inserted. 6 Taiwanese Car catheter was used to perform windy ective angiography of the left and right coronary arteries. LVEDP and transaortic gradients were dameon sured. Left ventriculography was not performed since recent 2D echo showed EF 20%. Patient tolerate d the procedure well. Hemostasis was achieved using TR band. There were no immediate complications. The following findings were noted. FINDINGS 1. Hemodynamics: Left ventricular end-diastolic pressure of 26 mmHg. No pullback gradient across th e aortic valve. 2. Coronary angiography: a. The left main coronary artery arose from the left sinus of Valsalva, gave rise to the left anteri or descending and left circumflex arteries and did not show any significant stenosis. b. The left anterior descending artery did not show any significant stenosis. c. The left circumflex artery did not show any significant stenosis. d. The right coronary artery was a large and dominant vessel arising from the right sinus of Valsalv a that did not show any significant stenosis. Conclusion No significant coronary artery disease Recommendations Optimization of medical therapy for severe nonischemic cardiomyopathy, probably alcohol mediated and repeat 2D echo in 3 months to evaluate the need for AICD implantation. Patient was advised on comple te abstinence from alcohol use. Consider LifeVest upon discharge. Signed by : Amandeep Kan, Electronically Approved : 04/11/2020 09:34:43
[2020-04-11] MEDS ORDERED: ATOR20TA58 PO (09:43)
[2020-04-11] MEDS ORDERED: METO25TA2 PO (09:43)
[2020-04-11 11:00] VITALS: BP 129/82
[2020-04-11] MEDS ORDERED: FUROSEMIDE 40 MG/4 ML VIAL. IVP SCH (12:00)
--- NOTE | 2020-04-11 13:02 | PDOC ---
MIRA MUIR ENTERPRISE ARCHITECT 04/11/20 1302: CARDIO Progress Notes Date and Time Date of Service 04/11/2020 Time of Evaluation 1100 Subjective Subjective: No Chest Pain, No shortness of breath, No Palpitations Vitals Vitals Vital Signs Date Time Temp Pulse Resp B/P (MAP) Pulse Ox O2 Delivery O2 Flow Rate FiO2 04/11/20 11:00 97.5 107 19 129/82 (98) 96 Room Air 97.5 04/11/20 09:01 2.0 Weight Weight [ ] Input and Output Intake and Output Intake and Output 04/11/20 07:00 Intake Total 1300 ml Output Total 600 ml Balance 700 ml Intake Oral 1300 ml Output Urine Total 600 ml # Voids 4 Physical Exam HEENT: Neck Supple W Full Motion Chest: Symmetric LUNGS: Clear to Auscultation Heart: RRR (SR) Abdomen: Soft N/T Extremities: Other (1+ bilateral LE pitting edema) Neurology: alert, oriented, follow commands Assessment Assessment 1. Acute on chronic combined diastolic/systolic CHF: appears compensated 2. NICM LVEF 20%. LHC revealed no CAD. Severe SM possibly from ETOH and chronic HTN 3. Accelerated hypertension: controlled 4. Chronic alcohol use: Reinforced abstinence. at least 10 beers a day 5. Moderate MR with mild to mod TR 6. Chews tobacco Recommendations 1. BMP and Mg today. Lasix IV x1 then PO daily 2. Start GDMT. Toprol, lisinopril, aldactone, lipitor. Will reeval for entresto as an outpt. Will also uptitrate toprol as an outpt pending his HR and BP trend. 3. Significant discussion in regards to treatment plan and optimization and option for lifevest but pt does not want the vest at this time 4. Also discussed cessation of tobacco and also alcoholism but appears to be not ready to quit, blaming stress as a significant contributor to his heart disease 5. Dietitian to see pt prior to DC. Justicifation of Admission Dx: Justifications for Admission: Justification of Admission Dx: Yes JOSE ELIAS ESPINOZA MD 04/11/20 1526: CARDIO Progress Notes Assessment Assessment Patient seen and examined. Agree with CONSUMER PRODUCT ADVISOR's assessment and plan. Cardiac catheterization did not show any significant coronary artery disease. Acute on chronic systolic heart failure better compensated. Plan for optimization of medical therapy and repeat 2D echo in 3 months to evaluate the need for AICD implantation. Option of LifeVest in the interim discussed but patient declined it. Will consider changing lisinopril to Entresto as an outpatient Importance of complete abstinence from alcohol use reemphasized. MIRA MUIR APRN Apr 11, 2020 13:02 JOSE ELIAS ESPINOZA MD Apr 11, 2020 15:26
[2020-04-11] MEDS ORDERED: LISI10TA2 PO (13:14)
[2020-04-11] MEDS ORDERED: FURO40TA4 PO (13:14)
[2020-04-11] MEDS ORDERED: SPIR25TA PO (13:14)
[2020-04-11 14:07] LABS: CALCIUM 8.7 mg/dL (8.5-10.1); CREATININE 1.3 mg/dL (0.7-1.3); GFR 59.7; MAGNESIUM 2.2 mg/dL (1.8-2.4); POTASSIUM 3.7 mmol/L (3.5-5.1)
[2020-04-11] MEDS ORDERED: POTA10TA6 PO (14:29)
--- NOTE | 2020-04-11 14:47 | PDOC ---
PULMONARY PROGRESS NOTES DATE: 04/11/20 TIME: 14:43 Subjective Remains on room air, No cough, No SOA ready to D/C home today Vitals Vital Signs Date Time Temp Pulse Resp B/P (MAP) Pulse Ox O2 Delivery O2 Flow Rate FiO2 04/11/20 11:00 97.5 107 19 129/82 (98) 96 Room Air 97.5 04/11/20 09:01 2.0 ROS: No Nausea, No Chest Pain, No Abdominal Pain, No Increase Cough General: Alert, No acute distress Lungs: Clear Cardiovascular: S1 Abdomen: Soft, Other (obese) Extremities: Other (trace edema) Skin: Warm Labs Laboratory Tests Test 04/11/20 13:23 Sodium Level 135 mmol/L (136-145) Potassium Level 3.7 mmol/L (3.5-5.1) Chloride Level 97 mmol/L (98-107) Carbon Dioxide Level 26 mmol/L (21-32) Anion Gap 12 (6-14) Blood Urea Nitrogen 13 mg/dL (8-26) Creatinine 1.3 mg/dL (0.7-1.3) Estimated GFR (Cockcroft-Gault) 59.7 Glucose Level 94 mg/dL (70-99) Calcium Level 8.7 mg/dL (8.5-10.1) Magnesium Level 2.2 mg/dL (1.8-2.4) Laboratory Tests Test 04/11/20 13:23 Sodium Level 135 mmol/L (136-145) Potassium Level 3.7 mmol/L (3.5-5.1) Chloride Level 97 mmol/L (98-107) Carbon Dioxide Level 26 mmol/L (21-32) Anion Gap 12 (6-14) Blood Urea Nitrogen 13 mg/dL (8-26) Creatinine 1.3 mg/dL (0.7-1.3) Estimated GFR (Cockcroft-Gault) 59.7 Glucose Level 94 mg/dL (70-99) Calcium Level 8.7 mg/dL (8.5-10.1) Magnesium Level 2.2 mg/dL (1.8-2.4) Medications Active Scripts Medications Dose Route/Sig Max Daily Dose Days Date Category Comments CATH FINDINGS 1. Hemodynamics: Left ventricular end-diastolic pressure of 26 mmHg. No pullback gradient across the aortic valve. 2. Coronary angiography: a. The left main coronary artery arose from the left sinus of Valsalva, gave rise to the left anterior descending and left circumflex arteries and did not show any significant stenosis. b. The left anterior descending artery did not show any significant stenosis. c. The left circumflex artery did not show any significant stenosis. d. The right coronary artery was a large and dominant vessel arising from the right sinus of Valsalva that did not show any significant stenosis. Conclusion No significant coronary artery disease Recommendations Optimization of medical therapy for severe nonischemic cardiomyopathy, probably alcohol mediated and repeat 2D echo in 3 months to evaluate the need for AICD implantation. Patient was advised on complete abstinence from alcohol use. Consider LifeVest upon discharge. ECHO <Conclusion> The left ventricular systolic function is severely impaired. The ejection fraction is 20%. Moderate mitral regurgitation. Mild to moderate tricuspid regurgitation. Estimated PAP 50 mmHg. There is no evidence of significant pericardial effusion. Impression . 1. Dyspnea with orthopnea and paroxysmal nocturnal dyspnea for the last 2 months. The findings are highly suggestive of congestive heart failure. 2. Abnormal CT chest with bilateral interstitial faint infiltrate and small pleural effusion. No evidence of pulmonary embolism. Findings highly suggestive of congestive heart failure. 3. No significant tobacco history. 4. Low clinical suspicion for COVID-19. 5. Suspected MYLES 6. Cardiomyopathy Plan . Pt. is stable from pulmonary standpoint, remains on room air COVID-19 negative Follow cardiology recs ECHO showed cardiomyopathy EF 20% and Cath was negative for CAD PT. scheduled for outpatient sleep study DVT/GI PPX D/W RN OK to D/C home today from our standpoint ERIN ZALDIVAR MD Apr 11, 2020 14:47
--- NOTE | 2020-04-11 15:13 | NUR ---
Patient educated multiple in regards to his recover after this cath. Patient would take off blood pressure cuff multiple times along with his pulse ox on his right hand.
[2020-04-11] MEDS ORDERED: ATORVASTATIN CALCIUM 20 MG TABLET PO SCH (21:00)
== END 2020-04-11 15:15 | disposition home or self-care (01) | DRG 287 ==
LOC: 2 SOUTH 09:03
PROVIDERS: ADMIT Internal Medicine; ATTEND Internal Medicine
PROC: 4A023N7 Measurement of Cardiac Sampling and Pressure, Left Heart, Percutaneous Approach (ICD-10-PCS; principal; 2020-04-11)
PROC: B2111ZZ Fluoroscopy of Multiple Coronary Arteries using Low Osmolar Contrast (ICD-10-PCS; 2020-04-11)
DX: I11.0 Hypertensive heart disease with heart failure (principal); I42.6 Alcoholic cardiomyopathy; I42.8 Other cardiomyopathies; F41.9 Anxiety disorder, unspecified; I08.1 Rheumatic disorders of both mitral and tricuspid valves; I25.5 Ischemic cardiomyopathy; I50.43 Acute on chronic combined systolic (congestive) and diastolic (congestive) heart failure; Z20.828 Contact with and (suspected) exposure to other viral communicable diseases; Z80.1 Family history of malignant neoplasm of trachea, bronchus and lung; Z82.49 Family history of ischemic heart disease and other diseases of the circulatory system; Z90.49 Acquired absence of other specified parts of digestive tract
CPT/HCPCS: 36415; 80048; 80053; 80061; 83735; 84443; 84484; 85610; 93306; 93458; 99152; 99153; C1769; C1892; J1200; J1644; J1650; J1940; J2060; J2250; J3010; J3490; Q9967; U0003; G0378